=== PATIENT | male | born 1965 | race Caucasian/White ===

== ENCOUNTER 2018-09-23 10:08 | Day surgery (SDC) | payer OTHER ==
[~2018-09-23 10:08] MED LIST: Buffered Lidocaine 1% SYRIN* 1 ML/SYRINGE INTRADERM ONE; Dexamethasone TAB* 4 MG PO ONE; DiMENhydriNATE IV* 50 MG/ML VIAL IV PUSH PRN; Famotidine IV* 10 MG/ML 2 ML (20 mg) IV ONE; HYDROmorphone INJ1* 1 MG/ML SYRINGE IV PRN; Lactated Ringers 1000 ML Bag* 1,000 ML IV SCH; Naloxone* 0.4 MG/ML 1 ML VIAL IV PRN; Ondansetron TAB* 4 MG PO ONE; PROCHLORPERAZINE INJ 5 MG/ML 2 ML VIAL IV PRN; fentaNYL* 50 MCG/ML 2 ML VIAL (100 MCG VIAL) IV PRN; oxyCODONE/Acetamin 5/325 MG* TAB PO PRN
[2018-09-23] MEDS ORDERED: Famotidine IV* 10 MG/ML 2 ML (20 mg) ONE (10:35)
[2018-09-23] MEDS ORDERED: Dexamethasone TAB* 4 MG ONE (10:35)
[2018-09-23] MEDS ORDERED: Ondansetron ODT TAB* 4 MG ONE (10:35)
[2018-09-23] MEDS ORDERED: ceFAZolin 2 GM PREMIX in ORs 2 GM/50 ML BAG IVPB ONE (10:36)
[2018-09-23] MEDS ORDERED: fentaNYL* 50 MCG/ML 2 ML VIAL (100 MCG VIAL) ONE ×2 (12:04→13:17)
[2018-09-23] MEDS ORDERED: Midazolam* 1 MG/ML 5 ML VIAL (5 MG) ONE (12:05)
[2018-09-23] MEDS ORDERED: ceFAZolin 1 GM ADVAN(*) 1 GM ADDV.VIAL IVPB ONE (12:26)
[2018-09-23] MEDS ORDERED: ROPIVACAINE 5 MG/ML 30 ML BTL (0.5%) ONE (12:32)
[2018-09-23] MEDS ORDERED: KETAMINE HCL* 50 MG/ML 10 ML VIAL ONE (12:39)
[2018-09-23] MEDS ORDERED: Propofol* 10 MG/ML 20 ML BTL ONE (12:52)
[2018-09-23] MEDS ORDERED: Lidocaine 2% PF * 5 ML VIAL ONE (12:52)
[2018-09-23] MEDS ORDERED: Ketorolac INJ* 30 MG/ML 1 ML VIAL ONE (12:52)
[2018-09-23] MEDS ORDERED: oxyCODONE/Acetamin 5/325 MG* TAB ONE (13:17)
[2018-09-23 14:04] VITALS: BP 126/87
--- NOTE | 2018-09-23 14:17 | OP ---
Operative Report - Blank - Operative Report Date of Operation: 09/23/18 Note: PATIENT: Hakeem Cruz DATE OF : 1965 DATE OF SURGERY: 09/23/2018 SURGEON: Kelechi Hawk MD TRESTLE MECHANIC: ERICA Morris, whos assistance was necessary for positioning, retraction, help with instrumentation, and closure. ANESTHESIOLOGIST: Dr. Huddleston PREOPERATIVE DIAGNOSIS: Left foot painful retained hardware POSTOPERATIVE DIAGNOSIS: Left foot painful retained hardware OPERATION: 1. Left foot, removal of implants, deep. ANESTHESIA: MAC IMPLANTS: none TOURNIQUET TIME: none SPECIMENS: none ESTIMATED BLOOD LOSS: minimal COMPLICATIONS: none STATUS: Stable from the operating room to the recovery room and then home. INDICATIONS FOR PROCEDURE: Hakeem had a prior foot reconstruction and has a screw in his calcaneus. Both operative and non operative treatment alternatives were reviewed. Further, the nature and risks of surgery were reviewed in careful detail, in the office as well as the pre-operative holding area. Our discussions regarding the risks of surgery included, but were not limited to, infection, wound problems, nerve injury, neuroma, RSD, persistent symptoms, blood clot, fracture, need for further surgery, persistent pain, failure of the surgery, and even the remote chance of catastrophic complication, including loss of limb. DESCRIPTION OF PROCEDURE: The patient was seen in the preoperative holding unit and informed written consent was obtained. The appropriate extremity was marked. The patient was then brought to the operating room and carefully positioned on the operating room table. Anesthesia was induced. All bony prominences were padded with great care. A chlorhexidine based pre-scrub was performed followed by a chloraprep prep and drape in standard sterile fashion. A surgical safety pause was then conducted in which we confirmed the appropriate patient, extremity, planned procedure, availability of equipment, indication and administration of prophylactic antibiotics, and DVT prophylaxis in the form of a compression boot on the non-surgical extremity. I injected local anesthetic to the area of the prior surgical incision. I utilized the prior heel incision. I utilized blunt dissection down to the level of the hardware. I then utilized a scalpel to sharply expose the screw head. I then removed the screw utilizing a screwdriver without difficulty. The screw came out in its entirety. Final fluoroscopic images were obtained demonstrating removal of the hardware. At this point, we irrigated copiously and then closed in layers meticulously utilizing 3-0 Monocryl and 3-0 nylon for the skin. A sterile dressing was then applied. The patient was then awakened from anesthesia and transferred to the recovery room in stable condition. There were no complications. All needle and sponge counts were correct at the end of the case. ATTESTATION: I attest I was present and scrubbed and performed the critical portions of the procedure myself. POSTOPERATIVE PLAN: The plan is to remove the sutures in 2 weeks.
== END 2018-09-23 14:35 | disposition home or self-care (01) ==
LOC: OR 10:08
PROVIDERS: ATTEND Orthopaedic Surgery
DX: T84.84XA Pain due to internal orthopedic prosthetic devices, implants and grafts, initial encounter (principal); Y83.1 Surgical operation with implant of artificial internal device as the cause of abnormal reaction of the patient, or of later complication, without mention of misadventure at the time of the procedure; E03.9 Hypothyroidism, unspecified; I10 Essential (primary) hypertension; S99.922D Unspecified injury of left foot, subsequent encounter; X58.XXXD Exposure to other specified factors, subsequent encounter; Y92.9 Unspecified place or not applicable
CPT/HCPCS: 76000; 88300; A9270-GY; J0690; J1885; J2250; J2704; J2795; J3010; J8540